=== PATIENT | male | born 1990 | race Caucasian/White ===

== ENCOUNTER 2021-08-31 14:41 | Emergency (ER) | payer OTHER ==
[~2021-08-31] VITALS: Ht 170.2 cm; Wt 59.1 kg
[2021-08-31 14:51] VITALS: BP 161/81; TEMP 98.6
[2021-08-31 16:20] VITALS: PULSE 70
== END 2021-08-31 16:20 | disposition home or self-care (01) ==
LOC: COL.ER 14:41
DX: S61.412A Laceration without foreign body of left hand, initial encounter (principal); Z28.310 Unvaccinated for COVID-19; W26.0XXA Contact with knife, initial encounter; Y92.59 Other trade areas as the place of occurrence of the external cause

== ENCOUNTER → 2021-09-07 | Outpatient (CLI) | payer SELFPAY ==
[2021-09-07 13:03] VITALS: BP 134/75; PULSE 71; TEMP 98.3
== END ==
LOC: COL.ER 12:35
DX: Z48.02 Encounter for removal of sutures (principal); Z28.310 Unvaccinated for COVID-19